=== PATIENT | female | born 1975 | race African-American/Black ===

== ENCOUNTER 2018-08-09 18:31 | Emergency (ER) | payer SELFPAY ==
[~2018-08-09] VITALS: Ht 170.2 cm; Wt 75.0 kg
[2018-08-09] MEDS ORDERED: LORAZEPAM 2MG/ML CPJ IM STA (21:18)
[2018-08-09] MEDS ORDERED: HALOPERIDOL LACTATE 5MG/ML VIAL IM STA (21:18)
[2018-08-09 21:47] LABS: BASOPHILS % 0.3 % (0.0-2.0); EOSINOPHILS % 0.7 % (0.0-5.0); HEMATOCRIT. 40.2 % (36.0-48.0); HEMOGLOBIN. 13.6 g/dL (12.0-16.0); LYMPHOCYTES % 36.6 % (20.0-50.0); MEAN CORPUSCULAR HEMOGLOBIN 31.3 pg (28.0-32.0); MEAN CORPUSCULAR VOLUME 92.4 fL (81.0-99.0); MEAN PLATELET VOLUME 8.2 fl (7.4-10.4); MONOCYTES % 8.3 % (2.0-8.0); NEUTROPHILS % 54.1 % (40.0-76.0); PLATELET 344 x1000/uL (130-400); RED BLOOD CELL COUNT 4.35 mill/uL (4.2-5.4); RED CELL DISTRIBUTION WIDTH 14.2 % (11.6-14.6)
[2018-08-09 21:51] LABS: CHLORIDE 107 mEq/L (98-107)
[2018-08-09 21:55] LABS: ETHANOL BLOOD < 10 mg/dL
[2018-08-09 21:59] LABS: HCG SCREEN NEGATIVE
[2018-08-09] MEDS ORDERED: POTASSIUM CHLORIDE 20MEQ TABLET SR PO ONE (23:00)
[2018-08-10 13:29] VITALS: BP 130/62
== END 2018-08-10 13:35 | disposition home or self-care (01) ==
LOC: EDBD 18:31 → ER 18:31
DX: F23 Brief psychotic disorder (principal); E87.6 Hypokalemia; R45.851 Suicidal ideations
CPT/HCPCS: 36415; 80053; 80307; 80320; 80329; 82140; 84703; 85025; 96372; 99284; J1630; J2060; G0480